=== PATIENT | male | born 1945 | race Caucasian/White ===

== ENCOUNTER 2021-01-31 17:21 | Inpatient (IN) ==
[2021-01-31] MEDS: NOREPINEPHRINE 8 MG in SODIUM CHLORIDE 0.9% 242 ML IV PRN (17:38)
[2021-01-31] MEDS: MIDAZOLAM 100 MG in SODIUM CHLORIDE 0.9% 80 ML IV PRN (18:10)
[2021-01-31] MEDS ORDERED: ONDANSETRON 4 MG/2 ML VIAL IV PRN (18:39)
[2021-01-31] MEDS ORDERED: ALBUTEROL 2.5 MG/3 ML NEB RESP TX PRN (18:39)
[2021-01-31 18:41] LABS: ABG Base Excess -14.2 MMOL/L (-2.5-2.5); ABG HCO3 13.8 MMOL/L (20-26); ABG Oxygen Saturation 99.2 % (95-100); ABG PCO2 30.3 MM HG (35-48); ABG PH 7.225 (7.35-7.45); ABG TCO2 11.1 MMOL/L (23-27)
[2021-01-31] MEDS ORDERED: SODIUM CHLORIDE 0.9% 1,000 ML IV STA (18:51)
[2021-01-31 19:17] LABS: Basophils % 0.4 % (0.0-0.8); Eosinophils # 0.1 10*3/uL (0.0-0.87); Eosinophils % 0.5 % (0.00-10.9); Hemoglobin 14.8 GM/DL (14.0-18.0); Immature Granulocytes % 4.3 %; Immature Granulocytes Absolute 0.43 #; Lymphocytes # 2.8 10*3/uL (1.4-4.0); Lymphocytes % 28.6 % (21.2-54.2); Mean Corpuscular HGB Conc 31.5 GM/DL (32-36); Mean Corpuscular Volume 105.4 FL (87-102); Monocytes % 3.1 % (1.7-12.7); NRBC # 0.05 10*3/uL; Neutrophils % 63.1 % (38.7-73.9); Platelet Count 164 T/CUMM (130-400); Red Blood Count 4.46 MC/CUMM (3.8-5.5); Red Cell Distribution Width 14.6 % (9.3-17.3); White Blood Count 9.9 T/CUMM (4-12)
[2021-01-31 19:44] LABS: Albumin 2.9 G/DL (3.4-5.0); Bilirubin,Total 1.7 MG/DL (0.20-1.00); Calcium 9.1 MG/DL (8.5-10.1); Osmolality,Calculated 314.2 MOS/KG (273-304); Potassium 5.5 MMOL/L (3.5-5.1); Total Protein 6.8 G/DL (6.4-8.2)
[2021-01-31 20:22] LABS: Lymphocytes 30 % (20-55); Metamyelocytes 1 %; Segmented Neutrophils 64 % (50-85); Total Cells Counted 100
[2021-01-31 20:24] LABS: Atypical Lymphocytes 1+; Microcytosis Slight; Spherocytes Slight
[2021-01-31] MEDS: fentaNYL INJ 1,250 MCG in SODIUM CHLORIDE 0.9% 225 ML IV PRN (20:40)
[2021-01-31] MEDS ORDERED: GLUCAGON 1 MG VIAL IM PRN (20:42)
[2021-01-31] MEDS ORDERED: PIPERACILLIN/TAZOBACTAM 3,375 MG in SODIUM CHLORIDE 0.9% 100 ML IV SCH (21:00)
[2021-01-31 21:02] LABS: ABG Base Excess -14.2 MMOL/L (-2.5-2.5); ABG HCO3 13.8 MMOL/L (20-26); ABG PCO2 29.6 MM HG (35-48); ABG PH 7.231 (7.35-7.45); ABG TCO2 11.1 MMOL/L (23-27)
[2021-01-31 22:35] LABS: Bacteria,Urine Few /HPF (Few); Bilirubin,Urine Negative (Negative); Blood, Urine Large mg/dL (Negative); Glucose,Urine (UA) 150 mg/dL (Negative); Ketones,Urine Negative (Negative); Mucus,Urine Occasional /LPF (Occasional); Nitrite,Urine Negative (Negative); Protein,Urine 100 MG/DL; RBC,Urine 16 /HPF (0-4); Sperm,Urine Moderate /HPF (Negative); Squamous Epithelial Cell,Urine Occasional /HPF (0-10); Urine Appearance Slightly Hazy (Clear); Urine Color Yellow (Yellow); Urine Specific Gravity 1.013 (1.001-1.035); Urine Urobilinogen < 2.0 EU/DL (0.2-1.0)
[2021-01-31 22:40] LABS: Barbiturates Screen,Urine Negative (Negative); Benzodiazepines Screen,Urine Negative (Negative); Cannabinoid Screen,Urine Negative (Negative); Opiate Screen,Urine Negative (Negative); Phencyclidine Screen,Urine Negative (Negative)
[2021-01-31 22:54] LABS: Albumin 2.7 G/DL (3.4-5.0); Bilirubin,Direct 1.26 MG/DL (0.0-0.20); Bilirubin,Indirect 0.5 MG/DL (0.0-1.0); Bilirubin,Total 1.8 MG/DL (0.20-1.00); Total Protein 6.2 G/DL (6.4-8.2)
[2021-01-31 23:27] LABS: Hepatitis B Core IgM Quant 0.13 Index; Hepatitis B Surface Ag Quant < 0.10 Index; Hepatitis B Surface Ag Result Non-Reactive (NonReactive); Hepatitis C Virus Ab Quant 0.09 Index; Hepatitis C Virus Ab Result Non-Reactive (NonReactive)
[2021-01-31] MEDS: SODIUM CHLORIDE 0.9% 1,000 ML IV SCH (23:45)
[2021-01-31] MEDS: LACTATED RINGERS 1,000 ML IV SCH (23:48)
[2021-01-31] MEDS: PANTOPRAZOLE 40 MG VIAL IV SCH (23:48)
[2021-01-31] MEDS: ENOXAPARIN 30 MG/0.3 ML SYRINGE SUBCUT SCH (23:48)
[2021-02-01] MEDS ORDERED: VANCOMYCIN INJ 1,000 MG in SODIUM CHLORIDE 0.9% 250 ML IV PRN (01:00)
[2021-02-01] MEDS ORDERED: VANCOMYCIN INJ 1,000 MG in SODIUM CHLORIDE 0.9% 250 ML IV ONE (01:00)
[2021-02-01] MEDS: INSULIN REGULAR 100 UNIT/ML SUBCUT SCH ×5 (01:45→20:48)
[2021-02-01 04:36] LABS: Allen Test Positive; Pt O2 Delivery Device Ventilator
[2021-02-01 04:41] LABS: ABG Base Excess -11.2 MMOL/L (-2.5-2.5); ABG HCO3 15.8 MMOL/L (20-26); ABG Oxygen Saturation 98.3 % (95-100); ABG PCO2 37.1 MM HG (35-48); ABG PH 7.237 (7.35-7.45)
[2021-02-01] MEDS: fentaNYL INJ 1,250 MCG in SODIUM CHLORIDE 0.9% 225 ML IV PRN ×2 (04:50→12:47)
[2021-02-01] MEDS: LACTATED RINGERS 1,000 ML IV SCH ×2 (05:33→15:28)
[2021-02-01 06:22] LABS: Basophils % 0.4 % (0.0-0.8); Hematocrit 47.9 VOL% (42.0-52.0); Immature Granulocytes Absolute 0.14 #; Lymphocytes # 0.7 10*3/uL (1.4-4.0); Lymphocytes % 10.4 % (21.2-54.2); Mean Corpuscular HGB Conc 31.3 GM/DL (32-36); Mean Corpuscular Volume 103.2 FL (87-102); Mean Platelet Volume 10.9 FL (9.6-12.0); Monocytes % 2.5 % (1.7-12.7); NRBC # 0.03 10*3/uL; Neutrophils % 84.7 % (38.7-73.9); Platelet Count 141 T/CUMM (130-400); Red Blood Count 4.64 MC/CUMM (3.8-5.5); Red Cell Distribution Width 14.7 % (9.3-17.3); White Blood Count 6.8 T/CUMM (4-12)
[2021-02-01 06:46] LABS: Albumin 2.6 G/DL (3.4-5.0); Bilirubin,Total 2.2 MG/DL (0.20-1.00); Osmolality,Calculated 319.8 MOS/KG (273-304); Potassium 4.8 MMOL/L (3.5-5.1)
[2021-02-01 06:48] LABS: Band Neutrophils 9 % (0-10); Lymphocytes 12 % (20-55); Nucleated Red Blood Cells 4 (0-5); Platelet Estimate Adequate; Segmented Neutrophils 76 % (50-85); Total Cells Counted 100
[2021-02-01] MEDS: MEROPENEM 500 MG in SODIUM CHLORIDE 0.9% 100 ML IV SCH ×2 (10:07→21:42)
[2021-02-01] MEDS: MIDAZOLAM 100 MG in SODIUM CHLORIDE 0.9% 80 ML IV PRN (10:50)
[2021-02-01] MEDS: NOREPINEPHRINE 8 MG in SODIUM CHLORIDE 0.9% 242 ML IV PRN ×5 (11:48→23:21)
[2021-02-01] MEDS: INSULIN NPH 100 UNIT/ML SUBCUT SCH (11:49)
[2021-02-01] MEDS: SODIUM CHLORIDE 0.9% 1,000 ML IV SCH ×3 (14:25→21:42)
[2021-02-01] MEDS ORDERED: DIGOXIN 0.5 MG/2 ML AMP IV STA (14:46)
[2021-02-01] MEDS ORDERED: DIGOXIN 0.5 MG/2 ML AMP IV ONE (15:10)
[2021-02-01] MEDS: DEXTROSE 50% 25 GM/50 ML VIAL IV PRN ×2 (16:05→20:49)
[2021-02-01] MEDS ORDERED: AMIODARONE INJ 150 MG in DEXTROSE 5% 100 ML IV ONE (17:55)
[2021-02-01] MEDS: ENOXAPARIN 30 MG/0.3 ML SYRINGE SUBCUT SCH (19:09)
[2021-02-01] MEDS: PANTOPRAZOLE 40 MG VIAL IV SCH (19:10)
[2021-02-01] MEDS ORDERED: SODIUM BICARBONATE 50 MEQ/50 ML VIAL IV ONE ×2 (21:12)
[2021-02-02] MEDS: INSULIN REGULAR 100 UNIT/ML SUBCUT SCH ×7 (00:08→23:57)
[2021-02-02] MEDS: DEXTROSE 50% 25 GM/50 ML VIAL IV PRN (00:08)
[2021-02-02] MEDS ORDERED: DEXTROSE 5% NACL 0.45% 1,000 ML IV SCH (00:30)
[2021-02-02] MEDS: fentaNYL INJ 1,250 MCG in SODIUM CHLORIDE 0.9% 225 ML IV PRN (01:33)
[2021-02-02 01:50] LABS: ABG Base Excess -20.6 MMOL/L (-2.5-2.5); ABG Oxygen Saturation 92.2 % (95-100); ABG PCO2 56.3 MM HG (35-48); ABG PO2 88.7 MM HG (80-95); ABG TCO2 12.4 MMOL/L (23-27)
[2021-02-02 01:51] LABS: ABG PH 6.968 (7.35-7.45)
[2021-02-02] MEDS ORDERED: SODIUM BICARBONATE 50 MEQ/50 ML VIAL IV ONE ×2 (01:58→02:56)
[2021-02-02] MEDS: SODIUM BICARB INJ 100 MEQ in DEXTROSE 5% 1,000 ML IV SCH ×6 (02:17→23:55)
[2021-02-02] MEDS: NOREPINEPHRINE 8 MG in SODIUM CHLORIDE 0.9% 242 ML IV PRN ×8 (02:40→21:57)
[2021-02-02 02:44] LABS: Basophils % 0.4 % (0.0-0.8); Hematocrit 44.3 VOL% (42.0-52.0); Hemoglobin 13.5 GM/DL (14.0-18.0); Immature Granulocytes % 6.2 %; Lymphocytes # 0.7 10*3/uL (1.4-4.0); Mean Corpuscular HGB Conc 30.5 GM/DL (32-36); Mean Corpuscular Volume 108.3 FL (87-102); NRBC # 0.06 10*3/uL; Neutrophils % 84.4 % (38.7-73.9); Platelet Count 135 T/CUMM (130-400); Red Blood Count 4.09 MC/CUMM (3.8-5.5); Red Cell Distribution Width 15.2 % (9.3-17.3); White Blood Count 9.7 T/CUMM (4-12)
[2021-02-02] MEDS ORDERED: CALCIUM CHLORIDE 1,000 MG/10 ML SYRINGE IV ONE (02:56)
[2021-02-02 02:57] LABS: Albumin 1.6 G/DL (3.4-5.0); Bilirubin,Total 0.8 MG/DL (0.20-1.00); Calcium 6.3 MG/DL (8.5-10.1); Osmolality,Calculated 325.7 MOS/KG (273-304); Potassium 5.4 MMOL/L (3.5-5.1); Total Protein 4.2 G/DL (6.4-8.2)
[2021-02-02] MEDS ORDERED: SODIUM CHLORIDE 0.9% 1,000 ML IV ONE ×2 (03:17→04:40)
[2021-02-02 03:37] LABS: Band Neutrophils 12 % (0-10); Lymphocytes 7 % (20-55); Nucleated Red Blood Cells 4 (0-5); Segmented Neutrophils 76 % (50-85); Total Cells Counted 100
[2021-02-02 05:33] LABS: CKMB % 1.8 %
[2021-02-02 06:23] LABS: ABG Base Excess -12.2 MMOL/L (-2.5-2.5); ABG Oxygen Saturation 95.4 % (95-100); ABG PCO2 42.6 MM HG (35-48); ABG PO2 93.5 MM HG (80-95); ABG TCO2 14.7 MMOL/L (23-27)
[2021-02-02 06:25] LABS: ABG PH 7.184 (7.35-7.45)
[2021-02-02] MEDS ORDERED: SODIUM CHLORIDE 0.9% 500 ML IV ONE (06:29)
[2021-02-02] MEDS ORDERED: NOREPINEPHRINE 4 MG/4 ML VIAL IV ONE (07:05)
[2021-02-02] MEDS: INSULIN NPH 100 UNIT/ML SUBCUT SCH (08:36)
[2021-02-02] MEDS ORDERED: LACTATED RINGERS 1,000 ML IV ONE (08:58)
[2021-02-02] MEDS: HYDROCORTISONE 100 MG VIAL IV SCH ×3 (09:12→21:05)
[2021-02-02] MEDS ORDERED: PHENTOLAMINE 5 MG VIAL INFILTRAT ONE ×2 (14:30)
[2021-02-02] MEDS ORDERED: AMIODARONE INJ 150 MG in DEXTROSE 5% 100 ML IV ONE (15:02)
[2021-02-02] MEDS ORDERED: AMIODARONE 150 MG/3 ML VIAL ONE (15:07)
[2021-02-02] MEDS ORDERED: AMIODARONE INJ 450 MG in DEXTROSE 5% 241 ML IV SCH (15:30)
[2021-02-02] MEDS ORDERED: LACTATED RINGERS 500 ML IV ONE ×2 (16:54→17:24)
[2021-02-02 17:16] LABS: ABG Base Excess -11.2 MMOL/L (-2.5-2.5); ABG HCO3 15.5 MMOL/L (20-26); ABG Oxygen Saturation 90.7 % (95-100); ABG PCO2 56.1 MM HG (35-48); ABG PO2 72.8 MM HG (80-95); ABG TCO2 17.5 MMOL/L (23-27)
[2021-02-02 17:19] LABS: ABG PH 7.128 (7.35-7.45)
[2021-02-02] MEDS: PANTOPRAZOLE 40 MG VIAL IV SCH (18:52)
[2021-02-02] MEDS: ENOXAPARIN 30 MG/0.3 ML SYRINGE SUBCUT SCH (18:52)
[2021-02-02] MEDS: MEROPENEM 500 MG in SODIUM CHLORIDE 0.9% 100 ML IV SCH (21:05)
[2021-02-02] MEDS: AMIODARONE INJ 450 MG in DEXTROSE 5% 241 ML IV SCH (22:02)
[2021-02-03] MEDS: NOREPINEPHRINE 8 MG in SODIUM CHLORIDE 0.9% 242 ML IV PRN ×2 (00:26→03:01)
[2021-02-03] MEDS: HYDROCORTISONE 100 MG VIAL IV SCH ×4 (02:03→20:40)
[2021-02-03 04:38] LABS: ABG Base Excess -2.4 MMOL/L (-2.5-2.5); ABG HCO3 22.3 MMOL/L (20-26); ABG Oxygen Saturation 92.6 % (95-100); ABG PCO2 54.2 MM HG (35-48); ABG PH 7.274 (7.35-7.45); ABG PO2 68.5 MM HG (80-95)
[2021-02-03] MEDS: SODIUM BICARB INJ 100 MEQ in DEXTROSE 5% 1,000 ML IV SCH ×5 (04:46→19:47)
[2021-02-03] MEDS: INSULIN REGULAR 100 UNIT/ML SUBCUT SCH ×5 (04:52→20:00)
[2021-02-03] MEDS: NOREPINEPHRINE 16 MG in SODIUM CHLORIDE 0.9% 484 ML IV PRN ×4 (05:30→23:47)
[2021-02-03 06:55] LABS: Basophils # 0.2 10*3/uL (0.0-0.2); Basophils % 0.8 % (0.0-0.8); Hematocrit 33.6 VOL% (42.0-52.0); Immature Granulocytes % 0.9 %; Immature Granulocytes Absolute 0.16 #; Lymphocytes # 0.8 10*3/uL (1.4-4.0); Lymphocytes % 4.2 % (21.2-54.2); Mean Corpuscular HGB Conc 31.8 GM/DL (32-36); Mean Corpuscular Volume 103.7 FL (87-102); Monocytes % 2.3 % (1.7-12.7); NRBC # 0.12 10*3/uL; Neutrophils % 91.8 % (38.7-73.9); Red Cell Distribution Width 15.7 % (9.3-17.3)
[2021-02-03 06:57] LABS: Hemoglobin 10.7 GM/DL (14.0-18.0); Platelet Count 48 T/CUMM (130-400); Red Blood Count 3.24 MC/CUMM (3.8-5.5)
[2021-02-03 07:00] LABS: Band Neutrophils 2 % (0-10); Lymphocytes 7 % (20-55); Nucleated Red Blood Cells 1 (0-5); Platelet Estimate Decreased; Segmented Neutrophils 88 % (50-85); Total Cells Counted 100
[2021-02-03 07:33] LABS: Alanine Aminotransferase 309 U/L (16-61); Albumin 0.9 G/DL (3.4-5.0); Alkaline Phosphatase 60 U/L (45-117); Aspartate Amino Transferase 1109 U/L (0-37); Blood Urea Nitrogen 92 MG/DL (7-18); Carbon Dioxide 24 MMOL/L (21-32); Estimated Glom Filtration Rate 15 ML/MIN; Glucose 129 MG/DL (74-106); Osmolality,Calculated 308.4 MOS/KG (273-304); Sodium 140 MMOL/L (136-145); Total Protein 2.7 G/DL (6.4-8.2)
[2021-02-03 07:34] LABS: Calcium < 5.0 MG/DL (8.5-10.1)
[2021-02-03] MEDS: INSULIN NPH 100 UNIT/ML SUBCUT SCH (08:47)
[2021-02-03] MEDS: CALCIUM GLUCONATE 2,000 MG in SODIUM CHLORIDE 0.9% 100 ML IV SCH ×3 (10:30→21:00)
[2021-02-03] MEDS: AMIODARONE INJ 450 MG in DEXTROSE 5% 241 ML IV SCH (14:18)
[2021-02-03] MEDS: PANTOPRAZOLE 40 MG VIAL IV SCH (18:57)
[2021-02-03] MEDS: MEROPENEM 500 MG in SODIUM CHLORIDE 0.9% 100 ML IV SCH (20:40)
[2021-02-04] MEDS: SODIUM BICARB INJ 100 MEQ in DEXTROSE 5% 1,000 ML IV SCH ×8 (00:30→22:30)
[2021-02-04] MEDS: INSULIN REGULAR 100 UNIT/ML SUBCUT SCH ×6 (00:50→20:57)
[2021-02-04] MEDS: AMIODARONE INJ 450 MG in DEXTROSE 5% 241 ML IV SCH ×2 (02:44→18:29)
[2021-02-04] MEDS: HYDROCORTISONE 100 MG VIAL IV SCH ×4 (03:50→20:54)
[2021-02-04 04:51] LABS: ABG Base Excess 2.7 MMOL/L (-2.5-2.5); ABG HCO3 29.2 MMOL/L (20-26); ABG Oxygen Saturation 93.4 % (95-100); ABG PCO2 54.8 MM HG (35-48); ABG PH 7.345 (7.35-7.45); ABG PO2 70.9 MM HG (80-95); ABG TCO2 30.9 MMOL/L (23-27)
[2021-02-04 04:54] LABS: Basophils # 0.2 10*3/uL (0.0-0.2); Basophils % 0.6 % (0.0-0.8); Hematocrit 30.8 VOL% (42.0-52.0); Hemoglobin 10.2 GM/DL (14.0-18.0); Immature Granulocytes % 2.8 %; Immature Granulocytes Absolute 0.83 #; Lymphocytes # 0.7 10*3/uL (1.4-4.0); Lymphocytes % 2.5 % (21.2-54.2); Mean Corpuscular HGB Conc 33.1 GM/DL (32-36); Monocytes % 4.1 % (1.7-12.7); NRBC # 0.13 10*3/uL; Red Blood Count 3.11 MC/CUMM (3.8-5.5); Red Cell Distribution Width 15.9 % (9.3-17.3); White Blood Count 29.7 T/CUMM (4-12)
[2021-02-04 05:22] LABS: Platelet Count 21 T/CUMM (130-400)
[2021-02-04 05:35] LABS: Band Neutrophils 1 % (0-10); Lymphocytes 4 % (20-55); Nucleated Red Blood Cells 1 (0-5); Platelet Estimate Decreased; Segmented Neutrophils 86 % (50-85); Total Cells Counted 100
[2021-02-04 06:32] LABS: Alanine Aminotransferase 275 U/L (16-61); Albumin 0.8 G/DL (3.4-5.0); Alkaline Phosphatase 105 U/L (45-117); Aspartate Amino Transferase 922 U/L (0-37); Blood Urea Nitrogen 84 MG/DL (7-18); Carbon Dioxide 29 MMOL/L (21-32); Estimated Glom Filtration Rate 15 ML/MIN; Glucose 138 MG/DL (74-106); Osmolality,Calculated 297.1 MOS/KG (273-304); Sodium 135 MMOL/L (136-145); Total Protein 2.7 G/DL (6.4-8.2)
[2021-02-04 06:45] LABS: Calcium < 5.0 MG/DL (8.5-10.1)
[2021-02-04] MEDS: NOREPINEPHRINE 16 MG in SODIUM CHLORIDE 0.9% 484 ML IV PRN (08:01)
[2021-02-04] MEDS: INSULIN NPH 100 UNIT/ML SUBCUT SCH (08:11)
[2021-02-04] MEDS: CALCIUM GLUCONATE 2,000 MG in SODIUM CHLORIDE 0.9% 100 ML IV SCH ×5 (08:30→21:00)
[2021-02-04] MEDS ORDERED: FONDAPARINUX 2.5 MG/0.5 ML SYRINGE SUBCUT SCH (09:00)
[2021-02-04] MEDS ORDERED: CALCIUM GLUCONATE 2,000 MG in SODIUM CHLORIDE 0.9% 100 ML IV SCH (09:00)
[2021-02-04] MEDS: FAMOTIDINE 20 MG/2 ML VIAL IV SCH ×2 (10:21→20:50)
[2021-02-04 14:13] LABS: ABG Base Excess 2.8 MMOL/L (-2.5-2.5); ABG HCO3 26.7 MMOL/L (20-26); ABG Oxygen Saturation 82.6 % (95-100); ABG PCO2 55.2 MM HG (35-48); ABG PH 7.339 (7.35-7.45); ABG PO2 52.5 MM HG (80-95); ABG TCO2 27.2 MMOL/L (23-27)
[2021-02-04] MEDS: MEROPENEM 500 MG in SODIUM CHLORIDE 0.9% 100 ML IV SCH (20:40)
[2021-02-05] MEDS: INSULIN REGULAR 100 UNIT/ML SUBCUT SCH ×6 (00:14→22:00)
[2021-02-05] MEDS: CALCIUM GLUCONATE 2,000 MG in SODIUM CHLORIDE 0.9% 100 ML IV SCH (01:00)
[2021-02-05] MEDS: SODIUM BICARB INJ 100 MEQ in DEXTROSE 5% 1,000 ML IV SCH ×3 (02:56→13:07)
[2021-02-05] MEDS: HYDROCORTISONE 100 MG VIAL IV SCH ×4 (02:57→21:49)
[2021-02-05 06:31] LABS: Basophils # 0.2 10*3/uL (0.0-0.2); Basophils % 0.6 % (0.0-0.8); Immature Granulocytes % 2.1 %; Immature Granulocytes Absolute 0.54 #; Lymphocytes # 0.8 10*3/uL (1.4-4.0); Lymphocytes % 3.3 % (21.2-54.2); Mean Corpuscular HGB Conc 34.5 GM/DL (32-36); Mean Corpuscular Volume 96.7 FL (87-102); Monocytes % 2.4 % (1.7-12.7); NRBC # 0.11 10*3/uL; Neutrophils % 91.6 % (38.7-73.9); Red Cell Distribution Width 15.8 % (9.3-17.3); White Blood Count 25.7 T/CUMM (4-12)
[2021-02-05 06:39] LABS: Platelet Count 9 T/CUMM (130-400)
[2021-02-05] MEDS ORDERED: SODIUM CHLORIDE 0.9% 1,000 ML IV PRN (06:42)
[2021-02-05 06:46] LABS: Osmolality,Calculated 282.9 MOS/KG (273-304); Potassium 3.9 MMOL/L (3.5-5.1)
[2021-02-05 06:48] LABS: Calcium 5.4 MG/DL (8.5-10.1)
[2021-02-05 07:03] LABS: Band Neutrophils 6 % (0-10); Hypochromasia Slight; Lymphocytes 6 % (20-55); Platelet Estimate Decreased; Segmented Neutrophils 78 % (50-85); Total Cells Counted 100
[2021-02-05] MEDS ORDERED: CALCIUM GLUCONATE 1,000 MG in SODIUM CHLORIDE 0.9% 100 ML IV ONE (07:36)
[2021-02-05] MEDS: INSULIN NPH 100 UNIT/ML SUBCUT SCH (08:15)
[2021-02-05] MEDS ORDERED: MAGNESIUM SULF RIDER 4 GM/100 ML PREMIX IV ONE (08:49)
[2021-02-05] MEDS: FAMOTIDINE 20 MG/2 ML VIAL IV SCH ×2 (08:55→21:48)
[2021-02-05 08:56] LABS: ABG Base Excess 5.1 MMOL/L (-2.5-2.5); ABG HCO3 28.9 MMOL/L (20-26); ABG PCO2 67.4 MM HG (35-48); ABG PH 7.303 (7.35-7.45); ABG PO2 65.2 MM HG (80-95); ABG TCO2 30.8 MMOL/L (23-27)
[2021-02-05] MEDS ORDERED: FUROSEMIDE 100 MG/10 ML VIAL IV ONE (09:36)
[2021-02-05] MEDS: AMIODARONE 200 MG TABLET PO SCH ×2 (09:55→21:48)
[2021-02-05] MEDS ORDERED: CALCIUM GLUCONATE 2,000 MG in SODIUM CHLORIDE 0.9% 100 ML IV ONE (12:00)
[2021-02-05 13:07] VITALS: BP 147/53
[2021-02-05] MEDS ORDERED: SODIUM CHLORIDE 0.9% 1,000 ML IV SCH (13:30)
[2021-02-05] MEDS: DEXTROSE 50% 25 GM/50 ML VIAL IV PRN (15:30)
[2021-02-05] MEDS ORDERED: DEXTROSE 5% NACL 0.9% 1,000 ML IV SCH (16:00)
[2021-02-05] MEDS: NOREPINEPHRINE 16 MG in SODIUM CHLORIDE 0.9% 484 ML IV PRN (16:36)
[2021-02-05] MEDS ORDERED: MULTIVITAMIN INJ 10 ML in AMINO ACIDS/DEXT/LYTES 5-20% 2,000 ML IV SCH (17:00)
[2021-02-05] MEDS ORDERED: THIAMINE INJ 100 MG, FOLIC ACID INJ 1 MG, MULTIVITAMIN INJ 10 ML in DEXTROSE 5% NACL 0.... IV ONE (17:30)
[2021-02-05] MEDS: MEROPENEM 500 MG in SODIUM CHLORIDE 0.9% 100 ML IV SCH (21:48)
[2021-02-06] MEDS: INSULIN REGULAR 100 UNIT/ML SUBCUT SCH ×3 (01:18→08:04)
[2021-02-06] MEDS: HYDROCORTISONE 100 MG VIAL IV SCH ×2 (03:25→11:59)
[2021-02-06] MEDS ORDERED: MINERAL OIL/PETROLATUM OPH OINT 3.5 GM TUBE BOTH EYES PRN (06:00)
[2021-02-06 06:18] LABS: ABG Base Excess -10.9 MMOL/L (-2.5-2.5); ABG HCO3 15.6 MMOL/L (20-26); ABG Oxygen Saturation 89.7 % (95-100); ABG PO2 74.3 MM HG (80-95); ABG TCO2 16.8 MMOL/L (23-27)
[2021-02-06 06:18] LABS: Basophils % 0.2 % (0.0-0.8); Hematocrit 29.6 VOL% (42.0-52.0); Hemoglobin 9.4 GM/DL (14.0-18.0); Lymphocytes # 0.6 10*3/uL (1.4-4.0); Lymphocytes % 3.3 % (21.2-54.2); Mean Corpuscular HGB Conc 31.8 GM/DL (32-36); Mean Corpuscular Volume 104.6 FL (87-102); Monocytes % 7.5 % (1.7-12.7); NRBC # 0.19 10*3/uL; Red Blood Count 2.83 MC/CUMM (3.8-5.5); Red Cell Distribution Width 16.7 % (9.3-17.3); White Blood Count 19.1 T/CUMM (4-12)
[2021-02-06 06:21] LABS: ABG PH 7.163 (7.35-7.45)
[2021-02-06 06:24] LABS: Platelet Count 14 T/CUMM (130-400)
[2021-02-06 06:32] LABS: Osmolality,Calculated 282.7 MOS/KG (273-304); Potassium 4.6 MMOL/L (3.5-5.1)
[2021-02-06 06:50] LABS: Band Neutrophils 1 % (0-10); Lymphocytes 4 % (20-55); Platelet Estimate Decreased; Segmented Neutrophils 90 % (50-85); Total Cells Counted 100
[2021-02-06 06:57] LABS: Calcium 5.5 MG/DL (8.5-10.1)
[2021-02-06] MEDS ORDERED: SODIUM CHLORIDE 0.9% 1,000 ML IV PRN (06:59)
[2021-02-06] MEDS: DEXTROSE 50% 25 GM/50 ML VIAL IV PRN ×2 (07:39→11:37)
[2021-02-06] MEDS ORDERED: CALCIUM GLUCONATE 2,000 MG in SODIUM CHLORIDE 0.9% 100 ML IV ONE (07:54)
[2021-02-06] MEDS: INSULIN NPH 100 UNIT/ML SUBCUT SCH (08:09)
[2021-02-06] MEDS: AMIODARONE 200 MG TABLET PO SCH (08:25)
[2021-02-06] MEDS: FAMOTIDINE 20 MG/2 ML VIAL IV SCH (08:30)
[2021-02-06 09:37] LABS: ABG HCO3 14.2 MMOL/L (20-26); ABG Oxygen Saturation 89.6 % (95-100); ABG PCO2 53.4 MM HG (35-48); ABG PO2 77.4 MM HG (80-95); ABG TCO2 16.1 MMOL/L (23-27)
[2021-02-06 09:47] LABS: ABG PH 7.103 (7.35-7.45)
[2021-02-06] MEDS ORDERED: FAT EMULSION 20% 250 ML IV SCH (14:00)
[2021-02-06] MEDS ORDERED: MULTIVITAMIN INJ 10 ML in AMINO ACIDS/DEXT/LYTES 5-20% 2,000 ML IV SCH (17:00)
== END 2021-02-06 11:38 | disposition expired | DRG 207 ==
LOC: EDUNIT# → EDBD → N.ED 17:21 → N.EDINP 18:39 → N.ICU 02-01 16:49 → N.CC 02-05 02:03 → UNDODISIN 02-06 11:38
PROVIDERS: ADMIT Internal Medicine; ATTEND Internal Medicine